=== PATIENT | female | born 1970 | race Caucasian/White ===

== ENCOUNTER → 2017-08-12 | Outpatient (CLI) | payer OTHER ==
--- NOTE | 2017-08-12 14:13 | MR ---
EXAMINATION TYPE: MR brain and iac wo/w con DATE OF EXAM: 08/12/2017 1:49 PM COMPARISON: 05/11/1717 HISTORY: Hearing loss TECHNIQUE: Multiplanar and multispin-echo imaging of the brain was performed both before and after the administr ation of contrast. High-resolution images are obtained of the internal auditory canals performed uti lizing 8.5 mL intravenous Gadavist contrast. The ventricles, basal cisterns and sulci overlying the cerebral convexities are within normal limits. There is no evidence for midline shift or mass effect. Acute intracranial hemorrhage or extra-axial collection is not evident. There is an incidental partially empty sella. Parenchymal cyst left basal ganglia. There are no abnormal areas of increased or decreased signal intensity within the brain parenchyma. High-resolution imaging of the internal auditory canals fails demonstrate evidence for an enhancing a coustic schwannoma or cerebellopontine cistern angle mass. Following contrast administration, there is no evidence for pathologic enhancement or enhancing mass. The paranasal sinuses and mastoid air cells are well-aerated. IMPRESSION: 1. No evidence of acoustic schwannoma or cerebellopontine angle mass.
== END | disposition home or self-care (01) ==
LOC: RADMRIMAIN 12:38
PROVIDERS: ATTEND Otolaryngology
DX: H93.3X2 Disorders of left acoustic nerve (principal); H93.12 Tinnitus, left ear; H91.92 Unspecified hearing loss, left ear
CPT/HCPCS: 70553; A9581

== ENCOUNTER 2017-12-08 11:05 | Day surgery (SDC) | payer OTHER ==
[2017-12-05 12:22] VITALS: BMI 31.6
[~2017-12-08 11:05] MED LIST: DEXAMETHASONE SOD PHOSPHATE 10 MG/ML 1 ML VIAL IV ONE; DEXAMETHASONE SOD PHOSPHATE 4 MG/ML 1 ML VIAL IV ONE; FAMOTIDINE 20 MG/2 ML VIAL IV ONE; HYDROmorphone 0.5 MG/0.5 ML SYRINGE IVP PRN; LACTATED RINGERS 1,000 ML IV SCH; MELOXICAM 7.5 MG TAB PO ONE; ONDANSETRON 4 MG/2 ML VIAL IVP ONE; ceFAZolin IN SWFI 2 GM/20 ML SYRINGE IVP ONE
[2017-12-08] MEDS: OXYMETAZOLINE 0.05% NASL SPRAY 1 SPRAY BOTTLE NASAL ONE ×5 (11:35→11:55)
[2017-12-08] MEDS ORDERED: LIDOCAINE 1%-EPI 1:100,000 20 ML VIAL SQ ONE ×2 (11:58→12:14)
[2017-12-08] MEDS ORDERED: EPINEPHrine 1 MG/ML (MDV) 30 ML VIAL SQ ONE ×2 (11:58→12:14)
[2017-12-08] MEDS ORDERED: BUPIVACAINE (PF) 0.5% 30 ML VIAL SQ ONE ×2 (11:59→12:14)
[2017-12-08] MEDS ORDERED: FLUORESCEIN STRIPS 1 MG STRIP MISCELLANE ONE ×2 (11:59→12:14)
[2017-12-08] MEDS ORDERED: SCOPOLAMINE 1.5MG/72HR PATCH TRANSDERM ONE (12:13)
[2017-12-08] MEDS ORDERED: ePHEDrine SULFATE/0.9% NACL/PF 50 MG/5 ML SYRINGE IV ONE (12:14)
[2017-12-08] MEDS ORDERED: fentaNYL (PF) 50 MCG/ML 2 ML AMP ONE (12:14)
[2017-12-08] MEDS ORDERED: DEXAMETHASONE SOD PHOS (MDV) 100 MG/10 ML VIAL ONE (12:14)
[2017-12-08] MEDS ORDERED: LIDOCAINE 1% INJ 10MG/ML (20 ML MDV) ONE (12:14)
[2017-12-08] MEDS ORDERED: SUCCINYLCHOLINE CHLORIDE 100 MG/5 ML SYR IV ONE (12:14)
[2017-12-08] MEDS ORDERED: PROPOFOL 10 MG/ML 20 ML VIAL IV ONE (12:14)
[2017-12-08] MEDS ORDERED: MIDAZOLAM 2 MG/2 ML VIAL ONE (12:14)
[2017-12-08 13:36] VITALS: TEMP 97.1
--- NOTE | 2017-12-08 13:50 | P.OP ---
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 Right nasopharyngeal lesion Postoperative Diagnosis: Same Procedure(s) Performed: Bilateral functional endoscopic sinus surgery with total ethmoidectomies and maxillary antrostomies with removal of bilateral maxillary sinus polyps Bilateral submucosal resection of the inferior turbinates with outfracture compression Endoscopic removal of bilateral maxillary sinus polyps Endoscopic biopsy of right nasopharyngeal lesion Anesthesia: GETA Surgeon: Carlos Chamorro Estimated Blood Loss (ml): 20 Pathology: other (sinonasal) Condition: stable Disposition: PACU Indications for Procedure: This patient was found to have chronic sinusitis with cysts and or polyps of the maxillary sinuses on CAT scan at the. Dentist office. She has nasal congestion drainage anosmia etc. MRI showed chronic sinusitis in the past. Patient has failed medical therapy. All risks, benefits, and alternative therapies were discussed in detail consent was obtained and all questions were answered. We also found a lesion of the right nasopharynx and a biopsy is recommended. Patient also found to have large obstructive inferior turbinates. Correction of the inferior turbinates and biopsied the nasopharynx was also recommended and consent was obtained. Operative Findings: Nasopharyngeal lesion chronic sinus disease large obstructive inferior turbinates Description of Procedure: This patient was taken to the operative room and placed in the supine position. A general inhalation anesthetic was administered to the patient by mask and subsequently intubated with a cuffed endotracheal tube by the department of anesthesia with a functioning IV line in place. Patient was monitored throughout the entire case by the department of anesthesia. We entered the inferior turbinates with a microdebrider and we remove bone and submucosal elements with use of a microdebrider anteriorly and the first 2 cm of the inferior turbinates. We then did an outfracture compression with a [employer] nasal elevator. We then made a nasal antral window inferiorly with a Radha and entered the maxillary sinuses with endoscopic visualization utilizing a 0 Gatica saji. Polyps were removed bilaterally. After the nasal antral windows were performed we then took down the uncinate process and opening up the maxillary sinuses from above. We remove diseased tissue that was visible. Attention was then paid to the ethmoids were total ethmoidectomy was performed utilizing a microdebrider and up-biting boss and endoscopic visualization. Our dissection carried out through the basal lamella into the posterior ethmoid air cells and we removed all ethmoid septations bilaterally both anteriorly and posteriorly. After the total ethmoidectomy was removed we then identified a nasopharyngeal lesion that was seen in the office and was biopsied and removed. To summarize inferior turbinates underwent outfracture compression and submucosal resection. We opened up the maxillary and ethmoid sinuses totally did a total ethmoidectomy with removal of all ethmoid septations under visualization with an endoscope and we remove bilateral maxillary sinus polyps. We then biopsied and removed a right nasopharyngeal lesion under endoscopic visualization. Patient tolerated this well. Propel and contour were placed along was xerogel which was hydrated. The patient tolerated this well and a follow-up is scheduled for 1 week. No splints or packing was required
[2017-12-08] MEDS ORDERED: ONDANSETRON 4 MG/2 ML VIAL IVP ONE (14:10)
[2017-12-08 14:38] VITALS: RESP 18
[2017-12-08 15:01] VITALS: BP 123/78; PULSE 72
== END 2017-12-08 15:29 | disposition home or self-care (01) ==
LOC: OR 11:05
PROVIDERS: ATTEND Otolaryngology
DX: J32.8 Other chronic sinusitis (principal); J34.2 Deviated nasal septum; J33.8 Other polyp of sinus; J34.3 Hypertrophy of nasal turbinates; E07.9 Disorder of thyroid, unspecified; Z79.890 Hormone replacement therapy; Z79.2 Long term (current) use of antibiotics; Z79.51 Long term (current) use of inhaled steroids; Z79.52 Long term (current) use of systemic steroids; Z79.899 Other long term (current) drug therapy; Z88.8 Allergy status to other drugs, medicaments and biological substances
CPT/HCPCS: 88305; 84703; 31267; 31255; 30520; 30140; C2625 ×2; J0171; J2250; J1100 ×2; J2405; J2001; J3010; J0330; J2704; J0690

== ENCOUNTER → 2018-09-02 | Outpatient (CLI) | payer OTHER ==
[2018-09-02 11:42] LABS: HCT 41.3 % (34.0-46.0); HGB 13.7 gm/dL (11.4-16.0); MCH 28.7 pg (25.0-35.0); MCHC 33.1 g/dL (31.0-37.0); MCV 86.6 fL (80.0-100.0); Mean Platelet Volume 6.8; Platelet Count 372 k/uL (150-450); RBC 4.77 m/uL (3.80-5.40); RDW 14.2 % (11.5-15.5); WBC 9.1 k/uL (3.8-10.6)
[2018-09-02 16:42] LABS: Albumin 4.5 g/dL (3.80-4.90); Albumin/Globulin Ratio 2.14 (1.60-3.17); Anion Gap 3.9 mmol/L (4.00-12.00); Calcium 9.3 mg/dL (8.7-10.3); Carbon Dioxide 27.1 mmol/L (21.6-31.8); Globulin 2.1 g/dL (1.6-3.3); LDL Cholesterol,Calculated 128.2 mg/dL (0.0-131.0); Potassium 4.1 mmol/L (3.5-5.5); Total Bilirubin 0.6 mg/dL (0.3-1.2); Total Protein 6.6 g/dL (6.2-8.2); VLDL Calculation 15.8 mg/dL (5.00-40.00)
[2018-09-02 16:50] LABS: T4, Free (Free Thyroxine) 1.7 ng/dL (0.80-1.80)
== END | disposition home or self-care (01) ==
LOC: LABWHC1 11:28
PROVIDERS: ATTEND Physician Assistant
DX: E78.5 Hyperlipidemia, unspecified (principal); E03.9 Hypothyroidism, unspecified
CPT/HCPCS: 36415; 80053; 80061; 84439; 84443; 84481; 85027

== ENCOUNTER → 2018-09-08 | Outpatient (CLI) | payer OTHER ==
--- NOTE | 2018-09-12 09:41 | MM ---
Reason for exam: screening (asymptomatic). Last mammogram was performed 1 year and 6 months ago. History: Family history of breast cancer in 2 maternal aunts at age 60. Physical Findings: A clinical breast exam by your physician is recommended on an annual basis and results should be correlated with mammographic findings. MG 3D Screening Mammo W/Cad Bilateral CC and MLO view(s) were taken. Prior study comparison: March 01, 2017, mammogram, performed at [facility]. October 10, 2015, mammogram, performed at [facility]. There are scattered fibroglandular densities. No significant changes when compared with prior studies. ASSESSMENT: Benign, BI-RAD 2 RECOMMENDATION: Routine screening mammogram of both breasts in 1 year.
== END | disposition home or self-care (01) ==
LOC: RADMAMWWP 16:51
PROVIDERS: ATTEND Physician Assistant
DX: Z12.31 Encounter for screening mammogram for malignant neoplasm of breast (principal)
CPT/HCPCS: 77063; 77067

== ENCOUNTER → 2020-05-19 | Outpatient (CLI) | payer OTHER ==
--- NOTE | 2020-05-19 13:42 | CT ---
EXAMINATION TYPE: CT sinus wo con DATE OF EXAM: 05/19/2020 COMPARISON: None HISTORY: 49-year-old female J32.9, Chronic sinusitis CT DLP: 648.0 mGycm Automated exposure control for dose reduction was used. TECHNIQUE: Noncontrast axial views of the paranasal sinuses were obtained. Coronal reconstructions pe rformed. FINDINGS: PARANASAL SINUSES: Mild mucosal thickening throughout the ethmoid air cells. Additional trace mucosal thickening bilateral maxillary sinuses. Frontal and sphenoid sinuses are well pneumatized. There is no air-fluid level. Reactive margaret- osteogenesis is not seen. There is no destruction of the osseous avila of the paranasal sinuses. THE NASAL CAVITY: The osteomeatal complexes are widely patent with prior medial maxillary antrectomies. The nasal septum shows anterior right nasal septal deviation. The imaged brain and orbits are normal in appearance. Mastoid air cells and middle ear cavities are well pneumatized. Reformatted images confirm above findings. IMPRESSION: 1. Previous bilateral medial maxillary antrectomies. 2. Mild mucosal thickening throughout the ethmoid air cells and trace within the bilateral maxillary sinuses. 3. Rightward deviation of the anterior nasal septum
== END | disposition home or self-care (01) ==
LOC: RADCTMAIN 10:35
PROVIDERS: ATTEND Otolaryngology
DX: J34.2 Deviated nasal septum (principal); J32.2 Chronic ethmoidal sinusitis; Z98.890 Other specified postprocedural states
CPT/HCPCS: 70486

== ENCOUNTER → 2020-11-10 | Outpatient (CLI) | payer OTHER ==
--- NOTE | 2020-11-11 11:18 | MM ---
Reason for exam: screening (asymptomatic). Last mammogram was performed 2 years and 2 months ago. History: Family history of breast cancer in 2 maternal aunts at age 60. Took hormonal contraceptives for 4 years. Physical Findings: A clinical breast exam by your physician is recommended on an annual basis and results should be correlated with mammographic findings. MG 3D Screening Mammo W/Cad Bilateral CC and MLO view(s) were taken. Prior study comparison: September 08, 2018, bilateral MG 3d screening mammo w/cad. March 01, 2017, mammogram, performed at [facility]. No suspicious calcifications are seen. New nodule 12 o'clock left breast zone B. ASSESSMENT: Incomplete: need additional imaging evaluation, BI-RAD 0 RECOMMENDATION: Special view mammogram of the left breast. If lesion persists on supplemental views, image directed ultrasound is recommended. [facility] will attempt to contact patient to return for supplemental views and ultrasound if indicated.
== END | disposition home or self-care (01) ==
LOC: RADMAMWWP 16:33
PROVIDERS: ATTEND Family Medicine
DX: Z12.31 Encounter for screening mammogram for malignant neoplasm of breast (principal); Z80.3 Family history of malignant neoplasm of breast
CPT/HCPCS: 77063; 77067

== ENCOUNTER → 2020-11-21 | Outpatient (CLI) | payer OTHER | END | disposition home or self-care (01) | DX: R92.8 Other abnormal and inconclusive findings on diagnostic imaging of breast (principal) | CPT/HCPCS: 77061; 77065 ==

== ENCOUNTER → 2023-12-26 | Outpatient (CLI) | payer OTHER ==
--- NOTE | 2024-01-18 19:20 | MM ---
Reason for Exam: Screening (asymptomatic). Last mammogram was performed 1 year(s) and 6 month(s) ago. Patient History: Menarche at age 11. First Full-Term at age 29. Premenopausal. Patient used Hormonal Contraceptives for 4 years. Maternal aunt (ramy) had breast cancer, age 60. Maternal aunt (halina) had breast cancer, age 60. Risk Values: Rae 5 year model risk: 1.3%. NCI Lifetime model risk: 10.3%. Prior Study Comparison: 11/10/2020 Bilateral Screening Mammogram, [facility]. 11/21/2020 Left Diagnostic Mammogram, [facility]. 06/25/2022 Bilateral MG 3D screening mammo w/cad, [facility]. Tissue Density: There are scattered areas of fibroglandular density. Findings: Analyzed By CAD. There is no suspicious group of microcalcifications or new suspicious mass in either breast. Overall Assessment: Negative, BI-RAD 1 Management: Screening Mammogram of both breasts in 1 year. . Patient should continue monthly self-breast exams. A clinical breast exam by your physician is recommended on an annual basis. This exam should not preclude additional follow-up of suspicious palpable abnormalities. Note on Rae scores and lifetime risk: 1. A Rae score greater than 3% is considered moderate risk. If this is the case, consider specialist referral to assess eligibility for a risk reducing agent. 2. If overall lifetime risk for the development of breast cancer is 20% or higher, the patient may qualify for future screening with alternating mammogram and breast MRI. Electronically signed and approved by: Miguel Sanchez M.D. Radiologist
== END | disposition home or self-care (01) ==
LOC: RADMAMWWP 14:45
PROVIDERS: ATTEND Family Medicine
DX: Z12.31 Encounter for screening mammogram for malignant neoplasm of breast (principal); Z80.3 Family history of malignant neoplasm of breast; R92.323 Mammographic fibroglandular density, bilateral breasts
CPT/HCPCS: 77063; 77067